=== PATIENT | male | born 1935 | race Caucasian/White ===

== ENCOUNTER 2023-03-28 16:27 | Inpatient (IN) | payer MEDICARE, OTHER, SELFPAY ==
[2023-03-28] VITALS (20 sets, daily range): BP systolic 99–164; BP diastolic 51–88
--- NOTE | 2023-03-28 11:57 | ED.GENMED ---
History of Present Illness
<Dana Aviles PA-C - Last Filed: 03/28/23 17:00>
General
Chief Complaint: Abnormal Lab Value
Source: patient
Exam Limitations: none
Time Seen by Provider: 03/28/23 11:57
Nursing documentation reviewed up to this point in time: agreed with
Travel History
Have you had any contact with someone who has COVID-19?: No
Do you have any symptoms of coronavirus? Fever > 100 degrees, chills, cough, shortness of breath, sore throat, loss of taste or smell, muscle aches, or headache?: No
History of Present Illness
History of Present Illness:
This is a 87 y/o male with a PMH of AML, HTN, HLP, Crohn's, presenting to the ER today with concerns of low platelet count of 3,000. His is present who states that his chemotherapy has been failing recently and that is why they are was
supposed to be getting a bone marrow transplant today when the labs came back and his platelets came back low, so interventional radiology sent him to ED for further evaluation. He currently has no complaints. Patient states that he feels week and
fatigued. He also states that he has had intermittent headaches for the past 2 days but currently denies headaches, nausea, vomiting, abdominal pain, chest pain, fevers or chills, shortness of breath, dizziness, lightheadedness. He states that he
was scheduled to get chemotherapy every 6 weeks but has currently stopped due to treatment failure.
Past History
<Dana Aviles PA-C - Last Filed: 03/28/23 17:00>
Past History
ED Past Medical History: CAD, Cancer (AML), GERD, HTN, Other (Acute myeloid leukemia dx 12/23/21) and Other (PVD, Crohn's disease)
ED Past Surgical History: Appendectomy, Bowel resection, Cardiac (Stents), Orthopedic (Right rotator cuff ) and Other (Fistula repair, Subclavian stent)
Social History
Tobacco: Former smoker
Alcohol: Occasional
Personal:
Living: with family
Review of Systems
<Dana Aviles PA-C - Last Filed: 03/28/23 17:00>
Review of Systems
All Other Systems: ROS reviewed and negative except as documented in HPI and ROS
Phy Exam
<Dana Aviles PA-C - Last Filed: 03/28/23 17:00>
Physical Exam
Physical Exam:
Vitals: vital signs are stable
General: patient appears ill, fatigued
Skin: raised, brady scattered skin lesions resembling seborrheic keratosis; scattered areas of ecchymosis on upper and lower extremities
HEENT: Head-atraumatic, normocephalic. Eyes-no conjunctival erythema, no scleral icterus. Nose-nares patent. Throat-no pharyngeal erythema, no tonsillar hypertrophy. No cervical lymphadenoapthy.
Cardiac: regular rate and rhythm, no murmurs
Pulm: normal respiratory effort, no wheezes, rales, or rhonchi
Abdomen: no abdominal tenderness, no distension, no hepatosplenomegaly
Neuro: AAO x3. CN II-XII. No involuntary movements noted.
Course
<Dana Aviles PA-C - Last Filed: 03/28/23 17:00>
Orders/Labs/Results
Orders:
Orders
03/28/23 12:30
Dexamethasone Sod Phosphate [Decadron] 10 mg IV NOW STA
03/28/23 13:46
Blood Bank Products [* Blood Bank Products] Stat
Blood Bank Products: *Plt Single Donor Leuko
Quantity: one p
Transfuse Today: Yes
Is product needed for scheduled surgery?: No
Reason: Thrombocytopenia
Patient will require pre-treatment for transfusion:: No
03/28/23 14:37
CT Head W/o Iv Contrast Urgent
Comment:
Reason For Exam: headache with thrombocytopenia
03/28/23 Dinner
Regular
At Your Request: Full Participation
Does patient need a safe tray?: No
03/28/23 16:08
Admit/Transfer Patient As Directed
Co-Sign Provider:
Level of Care: Inpatient admission
Assign to:: Medical/Surgical
Physician / Group: Dr Ardon
Diagnosis: Thrombocytopenia
Reason for Hospitalization: Patient 87-year-old male with history of AML presented to the hospital with severe
thrombocytopenia.
Expected length of stay greater than two midnights?: Yes
ELOS- Estimated Length of Stay in days: 2
I certify the patient meets the requirements for IP care: Yes
03/28/23 16:09
Code Status As Directed
Resuscitation Status: Full Code
03/28/23 19:30
Activity As Directed
Activity Level: Out of Bed-Early Mobility
Pneumatic Compression Sleeves As Directed
Type: Knee high
Vital Signs As Directed
Frequency: Per unit guidelines
DX Deep Vein Thrombosis Video Routine
03/29/23 05:41
Basic Metabolic Panel IN AM
Complete Blood Count/With Diff IN AM
Vital Signs
Initial and Last Documented VS:
Initial Vital Signs
BP
99/82
03/28/23 11:44
Last Documented Vital Signs
Temp Pulse Resp BP Pulse Ox
97.5 F 87 18 174/80 99
03/29/23 07:00 03/29/23 07:00 03/29/23 07:00 03/29/23 07:00 03/29/23 07:00
<German Thomas MD - Last Filed: 03/29/23 15:17>
Orders/Labs/Results
Orders:
Orders
03/28/23 12:30
Dexamethasone Sod Phosphate [Decadron] 10 mg IV NOW STA
03/28/23 13:46
Blood Bank Products [* Blood Bank Products] Stat
Blood Bank Products: *Plt Single Donor Leuko
Quantity: one p
Transfuse Today: Yes
Is product needed for scheduled surgery?: No
Reason: Thrombocytopenia
Patient will require pre-treatment for transfusion:: No
03/28/23 14:37
CT Head W/o Iv Contrast Urgent
Comment:
Reason For Exam: headache with thrombocytopenia
03/28/23 Dinner
Regular
At Your Request: Full Participation
Does patient need a safe tray?: No
03/28/23 16:08
Admit/Transfer Patient As Directed
Co-Sign Provider:
Level of Care: Inpatient admission
Assign to:: Medical/Surgical
Physician / Group: Dr Ardon
Diagnosis: Thrombocytopenia
Reason for Hospitalization: Patient 87-year-old male with history of AML presented to the hospital with severe
thrombocytopenia.
Expected length of stay greater than two midnights?: Yes
ELOS- Estimated Length of Stay in days: 2
I certify the patient meets the requirements for IP care: Yes
03/28/23 16:09
Code Status As Directed
Resuscitation Status: Full Code
03/28/23 19:30
Activity As Directed
Activity Level: Out of Bed-Early Mobility
Pneumatic Compression Sleeves As Directed
Type: Knee high
Vital Signs As Directed
Frequency: Per unit guidelines
DX Deep Vein Thrombosis Video Routine
03/29/23 05:41
Basic Metabolic Panel IN AM
Complete Blood Count/With Diff IN AM
Vital Signs
Initial and Last Documented VS:
Initial Vital Signs
BP
99/82
03/28/23 11:44
Last Documented Vital Signs
Temp Pulse Resp BP Pulse Ox
97.5 F 87 18 174/80 99
03/29/23 07:00 03/29/23 07:00 03/29/23 07:00 03/29/23 07:00 03/29/23 07:00
<Dana Aviles PA-C - Last Filed: 03/28/23 17:00>
MDM/Problems Addressed
Differential Diagnosis Includes:
chemotherapy side effects, spontaneous intracranial hemorrhage, blast crisis
MDM/Problems Addressed:
low platelets

will order CT head considering recent headaches
Chronic conditions affecting care: HTN, CAD, Neurological disorder and Cancer (AML, skin cancer)
Acute Exacerbation and/or Progression of Chronic Illness:
AML
Acute Exacerbation and/or Progression of Chronic Illness: Cancer
<Dana Aviles PA-C - Last Filed: 03/28/23 17:00>
*Pulse Oximetry
Patient hypoxic: no
*Critical Care Note
Total Time (30-74mins, 75-104mins- exclusive of procedures): Not Applicable
Data Reviewed
Review of Other/Old Records Reveals: Records (Reviewed office history and physical from 03/06/2023, reviewed ER physician documentation from 01/18/2022, reviewed discharge summary from 01/27/2022)
Source: patient and family
<ANITRA Swenson Last Filed: 03/28/23 17:00>
Patient Management
Discussion with other providers: [facility] [employer] (spoke with heme/onc for treatment recommendations, recommend transfusing and discharging once plt >15, vs transfusing and admitting for observation)
Escalation/DeEscalation of care consider admission/obs:
This is a 87-year-old male with a past medical history of acute myeloid leukemia has been the emergency department today with low platelets. He was going for bone marrow biopsy today to assess response to therapy when they saw that his platelets
were low. Patient currently denies any headaches other than intermittent headaches that occurred 2 days ago. Patient also admits to fatigue and weakness however other ROS negative. Will plan to transfuse, and admit for observation to ensure his
platelets are at goal. CT head reveals no acute intracranial abnormality. will admit for observation
ED Attending Note
<Dana Aviles PA-C - Last Filed: 03/28/23 17:00>
-
Portions of this chart may have been created with voice recognition software.� Occasional wrong word or��sound alike� substitutions may have occurred due to the inherent limitations of voice recognition software.
<German Thomas MD - Last Filed: 03/29/23 15:17>
ED Attending Note
Patient seen and examined by attending physician: Yes
ED Attending Note:
Patient with history of CML and thrombocytopenia, presents to ED for evaluation secondary to worsening platelet count, along with intermittent headache and dizziness. Patient was scheduled to receive bone marrow biopsy, which now has been deferred
secondary to thrombocytopenia. Patient denies fever or chills. Denies blurred vision. Denies nausea or vomiting. Denies loss of sensation or weakness. Patient has recently received RBC as well as platelet transfusion, without any side effects.
Physical Exam
General: no apparent distress, not acutely ill. afebrile. weak appearing
Head: nc/at. eomi
Neck: supple. no meningeal signs.
Heart: s1/s2 regular rate and rhythm, no murmur. equal radial pulses.
Lungs: no acute respiratory distress. clear bilaterally
Abdomen: normal bowel sounds. not tender.
Neuro: alert and oriented. no focal neurological deficits
Skin: no rash
Psychiatric: well kept. interactive and cooperative
Extremities: no edema. no calf tenderness.
Blood work reviewed, significant for anemia and thrombocytopenia.
Discussed with Dr. Willett, hematology, who recommends platelet transfusion and further evaluation.
Transfusion consent on the chart.
CT head pending
Discharge Plan
Departure
Patient Disposition: Admit
Date of Disposition: 03/28/23
Time of Disposition: 15:02
Presentation/result/management discussed w/ accepting MD/DO: Hospitalist
Discharge Problem:
Thrombocytopenia, Anemia
Interventions
Interventions:
*Risk Screen - Suicide Last Done: 03/28/23 20:30
*General Assessment Last Done: 03/28/23 11:54
*Neglect/Abuse Screening Last Done: 03/28/23 11:54
ED- Fall Risk Assessment Last Done: 03/28/23 11:54
*ED COVID-19 Vaccine History Last Done: 03/28/23 20:30
*Nursing Disposition Last Done: 03/28/23 19:15
Discharge Date and Time
Discharge Date/Time: 03/28/23 19:16
--- NOTE | 2023-03-28 16:15 | HPS.HSE ---
Addendum entered and electronically signed by Tristan Ardon MD 03/28/23 18:11:
Correction CODE STATUS is DNR. Confirmed with at bedside.
Original Note:
Family Physician
-
Family Physician: Phylicia Salvador
Chief Complaint
-
Severe low platelets
History of Present Illness
Patient 87-year-old male with history of AML, hypertension, Crohn's, GERD, PVD, CAD, presented to the hospital with severe thrombocytopenia. Patient was in the process of getting a bone marrow biopsy and labs came back with severe thrombocytopenia
so interventional radiology instructed him to come to the ED and procedure aborted. Patient denies any hematuria, epistaxis, bright blood per rectum, melena, hematochezia, hematemesis. He does have some easy bruising. He also had significant
blood extravasation with was getting blood drawn today as per report (by the way is a better historian and knows most details of her illnesses). He denies any fevers or chills. Denies any chest pain or shortness of breath or
lightheadedness. Patient has been getting chemotherapy but recently has been held due to thrombocytopenia per family report. tells me that he has been diagnosed with AML since December 2021 and he has been receiving treatment since then with
follow-up at [facility] and also locally with Dr. Espinoza. also reports that his hemoglobin has been trending down gradually from a baseline of 12 down to 10, 9 and now down to 7.9. also tells me his platelet count has been going down as well
over the last few months and has been in the 20 and 12,000 range but today down to 3000. In the ED, he is hemodynamically stable and he was found to have a platelet count of 3, hemoglobin 7.9, white blood cell count of 3.1. He was referred to
hospitalist service for further evaluation.
Medical History
Past Medical History
Past Medical History: Reports Other (Hypertension, hyperlipidemia, CAD, AML, PVD, Crohn's)
Past Surgical History: Reports Other (Appendectomy, bowel resection, PCI with stents, right rotator cuff repair, distal repair, subclavian stent.)
Social History
Tobacco: Former Smoker
Alcohol: Occasional
Drug: None
Family History
Family History: Other (Mother with breast cancer and father with head and neck cancer.)
Allergies / Home Medications
Allergies reflects when Allergies were last updated in [facility].
Home Medications with original date entered in [facility]
Allergy/Medication List:
Allergies
Allergy/AdvReac Type Severity Reaction Status Date / Time
pollen extracts Allergy HAYFEVER/SNEEZING/ITCHY Verified 03/20/23 12:11
EYES
Home Medications
simvastatin 20 mg tablet 20 mg PO QPM High cholesterol 04/24/09
allopurinol 300 mg tablet 150 mg PO DAILY Gout 11/29/21
cyanocobalamin (vitamin B-12) 1,000 mcg tablet (Vitamin B-12) 500 mcg PO DAILY Supplement 11/29/21
omeprazole 10 mg capsule,delayed release 10 mg PO DAILY Gastrointestinal issue 11/29/21
ascorbic acid (vitamin C) 1,000 mg tablet (Vitamin C) 1,000 mg PO DAILY Supplement 12/17/21
acyclovir 400 mg tablet 400 mg PO BID infection prophylaxis 01/20/22
azacitidine 100 mg solution for injection (Vidaza) 0 mg SC UD Cancer 01/20/22
fexofenadine 180 mg tablet ([facility]i Allergy) 180 mg PO DAILY Allergies 01/20/22
venetoclax 100 mg tablet 400 mg PO UD Cancer 01/20/22
acetaminophen 325 mg tablet (Tylenol) 650 mg PO Q4HPRN PRN mild pain 03/28/23
Review of Systems
-
A 12 point ROS was completed and negative except as noted: Yes
Physical Exam
Vital Signs
Vital Signs
Temp Pulse Resp BP Pulse Ox
98.2 F 78 17 120/64 98
03/28/23 16:14 03/28/23 16:14 03/28/23 16:14 03/28/23 16:14 03/28/23 16:14
Physical exam:
General: Acutely ill
HEENT: Normocephalic, Atraumatic and Moist Mucous Membranes
Respiratory: Clear to Auscultation; Negative Wheezes, Rales or Rhonchi
Cardiac: Regular Rhythm and S1/S2
GI: Soft, Nontender and Nondistended
Musculoskeletal: Some bruises in extremities and a few petechiae. No Clubbing, No Cyanosis and No Edema
Neuro: Awake, Alert and Oriented
Psych: Calm
Physical Exam
General: Other
Impression/Plan
-
IMPRESSION:
Patient 87-year-old male with multiple comorbidities and history of AML presented to the hospital severe thrombocytopenia. Patient at very high risk of morbidity mortality due to severe thrombocytopenia and risk of spontaneous major bleeding and he
will need to be treated in the hospital and monitored accordingly. He is also at risk of toxicity and or complications from treatment itself.
Impression:
Severe thrombocytopenia
Anemia
AML
Conditions prior to presentation:
Hypertension
Hyperlipidemia
CAD
GERD
PLAN:
Will transfuse with platelets today
Will obtain PT and PTT
Hematology consulted ([facility] texted Dr. Kartik Willett today)
Hematology does recommend transfusion of single donor platelet today.
Monitor platelets after transfusion
Will also transfuse packed RBC today, irradiated and leuko completed and CMV negative until clarified by hematology if he is a candidate for transplant or not.
Monitor hemoglobin
Monitor volume status after transfusions
Avoid any antiplatelets or anticoagulants
Hold home regimen until clarification of accurate home list.
SCDs for DVT prophylaxis
CODE STATUS full code
Will give further recommendations based on his clinical course
Prognosis guarded
Total time spent on today's encounter was 75 minutes which included time spent in counseling the patient/family regarding diagnosis and treatment plan as listed above, goals of care, and symptom management. Case was discussed with nursing staff,
specialists, and care coordinators/case management. All labs and imaging personally reviewed by me. Remainder the time spent in detailed review of previous records, lab data, imaging, and other medical provider documentation.
--- NOTE | 2023-03-28 21:30 | PTCARENOTE ---
Pt arrived to 3W form ED and pulled from the stretcher to bed. Pt is AAOx3, oriented to the unit. Bed alarm placed. Plan of care ongoing.
[2023-03-29 00:27] VITALS: BP 142/63
[2023-03-29 06:28] LABS: Hematocrit 26.8 % (39.0-52.0); Hemoglobin 9.3 g/dL (13.0-18.0); Mean Corp Hgb Conc. 34.7 g/dL (33.0-37.0); Mean Corpuscular Hgb 31.1 pg (27.0-31.0); Mean Corpuscular Volume 89.6 fL (80.0-94.0); Mean Platelet Volume 10.6 fL (7.4-10.4); Nucleated Red Blood Cells % 0 % (-); Red Blood Cell Count 2.99 10^6/uL (4.70-6.10); Red Cell Dist. Width 18.6 % (11.5-14.5); White Blood Cell Count 2.5 10^3/uL (4.8-10.8)
[2023-03-29 06:31] LABS: Platelet Count 18 10^3/uL (130-400)
[2023-03-29 07:00] VITALS: BP 174/80
[2023-03-29 07:23] LABS: Absolute Neutrophils -Man Diff 0.6 10^3/uL (1.4-6.5); Atypical Lymphocytes 3 %; Band Neutrophils 0 % (0-3); Eosinophils 1 % (0-6); Lymphocytes 58 % (20-51); Monocytes 14 % (2-9); Segmented Neutrophils 24 % (42-75)
[2023-03-29 07:24] LABS: Anisocytosis Slight; Hypochromasia Slight; Normal RBC Morphology No; Ovalocytes Slight; Platelets Checked Yes; Total Cells Counted 100
[2023-03-29 07:25] LABS: Blood Urea Nitrogen 20 mg/dl (9-20); Calcium 9.1 mg/dl (8.4-10.2); Carbon Dioxide 24 mmol/L (22-30); Chloride 101 mmol/L (98-107); Glucose 116 mg/dl (70-99); Potassium 4.1 mmol/L (3.5-5.1); Sodium 135 mmol/L (135-145); eGFR > 60.00
--- NOTE | 2023-03-29 08:30 | CON.ONC ---
Impression
Impression
AML with progressive pancytopenia
Plan
Plan
Blood counts improved. Okay to proceed with bone marrow biopsy despite platelet count. If this can be done prior to discharge, fine, if not reschedule to be done tomorrow as outpatient.
Coordinate with interventional radiology they can do it. Inpatient bone marrow biopsies have now been denied by administration to be done inpatient unless clinically urgent.
If for some reason bone marrow biopsy cannot be done until next week and IR wants platelet count to be higher than single digits, consider repeat platelet transfusion either the day prior or the day of the bone marrow biopsy if it has to be
scheduled for next week. I am comfortable with the patient being discharged home at this time.
Patient History
History of Present Illness
CC: Sent from IR to ER for severe low platelets
HPI: 87-year-old male with history of AML, presented to the hospital with severe thrombocytopenia. Patient was in interventional radiology about to undergo a bone marrow biopsy but platelet count returned = 3, so biopsy procedure was aborted and
patient was referred to the ER. Somewhat confused as to why he is in the hospital. He has no fever or bleeding. Patient's blood counts have been declining and bone marrow biopsy was being performed to evaluate his underlying disease status.
Following platelet transfusion platelet count has improved = 18,000 this morning. In addition, hemoglobin also improved from 7.9-9.3 with 1 unit of PRBCs.
PMH: AML, hypertension, Crohn's, GERD, PVD, CAD
Patient Medication
Medication Instructions Recorded Confirmed Last Taken Type
simvastatin 20 mg tablet 20 mg PO QPM High cholesterol 04/24/09 03/28/23 03/27/23 History
allopurinol 300 mg tablet 150 mg PO DAILY Gout 11/29/21 03/28/23 03/28/23 History
cyanocobalamin (vitamin B-12) 500 mcg PO DAILY Supplement 11/29/21 03/28/23 03/28/23 History
1,000 mcg tablet (Vitamin B-12)
omeprazole 10 mg capsule,delayed 10 mg PO DAILY Gastrointestinal 11/29/21 03/28/23 03/28/23 History
release issue
ascorbic acid (vitamin C) 1,000 mg 1,000 mg PO DAILY Supplement 12/17/21 03/28/23 03/28/23 History
tablet (Vitamin C)
acyclovir 400 mg tablet 400 mg PO BID infection prophylaxis 01/20/22 03/28/23 03/28/23 History
azacitidine 100 mg solution for 0 mg SC UD Cancer 01/20/22 03/28/23 03/20/23 History
injection (Vidaza)
fexofenadine 180 mg tablet 180 mg PO DAILY Allergies 01/20/22 03/28/23 03/28/23 History
(Christi Allergy)
venetoclax 100 mg tablet 400 mg PO UD Cancer 01/20/22 03/28/23 3 Weeks Ago History
~03/07/23
acetaminophen 325 mg tablet 650 mg PO Q4HPRN PRN mild pain 03/28/23 03/28/23 03/27/23 History
(Tylenol)
Physical Exam
-
General: No Apparent Distress, Comfortable and Conversant
HEENT: Negative Jaundice
Cardiology: S1 and S2
Pulmonary: Clear
GI: Soft
Psych: Calm
Labs
Lab Results
WBC 2.5 10^3/uL (4.8-10.8) L 03/29/23 05:41
RBC 2.99 10^6/uL (4.70-6.10) L 03/29/23 05:41
Hgb 9.3 g/dL (13.0-18.0) L 03/29/23 05:41
Hct 26.8 % (39.0-52.0) L 03/29/23 05:41
MCV 89.6 fL (80.0-94.0) 03/29/23 05:41
MCH 31.1 pg (27.0-31.0) H 03/29/23 05:41
MCHC 34.7 g/dL (33.0-37.0) 03/29/23 05:41
RDW 18.6 % (11.5-14.5) H 03/29/23 05:41
Plt Count 18 10^3/uL (130-400) L* D 03/29/23 05:41
MPV 10.6 fL (7.4-10.4) H 03/29/23 05:41
Creatinine 0.8 mg/dL (0.7-1.3) 03/29/23 05:41
Vital Signs
Vital Signs
Temp Pulse Resp BP Pulse Ox
97.5 F 87 18 174/80 99
03/29/23 07:00 03/29/23 07:00 03/29/23 07:00 03/29/23 07:00 03/29/23 07:00
--- NOTE | 2023-03-29 09:58 | CM ---
Addendum entered by Daysi Healy 03/29/23 13:26:
Plan: Discharge to home today; will provide ride home
Original Note:
Met with patient at bedside; initial assessment completed
Pharmacy verified: [facility]
Patient reported that he lives with his in an apartment; building has elevator access; bath has tub with shower
Reported that family lives nearby if assistance is needed
PLOF: reported he is independent with ambulation, stairs, and ADLs; drives
SNF/Rehab/Home Care utilization history: none
Transportation: will provide ride home
Plan: discharge to home when medically stable; CM will follow for discharge needs
--- NOTE | 2023-03-29 12:53 | W.PN.HOSP.TC ---
Today's Communication/Plan
-
Discharge
Assessment / Plan
Assessment / Plan
Gen-AAOx3, NAD
HEENT-NC, AT, anicteric, clear oral mm
Neck-supple
CV-reg, no M, +S1/S2
Lungs-clear B/L
Abd-soft, NT, ND
Ext-no edema
Musculoskeletal-no cyanosis, clubbing
Skin-warm and dry
Neuro-grossly non-focal
Psych-calm, cooperative
AML with progressive pancytopenia - counts improved with platelet and RBC transfusion. I spoke with oncology, Dr. Butt, he recommends discharge today and return for outpatient bone marrow biopsy this week. I spoke with interventional radiology
and they will call the patient to come back this March 31 for bone marrow biopsy. Discussed with patient and in detail and they agree with plan of care. Follow-up with oncology after discharge. I explained to the patient and
that we can no longer perform inpatient bone marrow biopsies due to cost reasons.
Essential hypertension
Hyperlipidemia -continue simvastatin.
CAD
Crohn's disease
PAD
DNR
Dispo -discharge today as above.
32 minutes spent in discharge process.
Anticipated Discharge: Today
Subjective/Interval History
-
Date of Service: March 29, 2023
Patient seen and examined. at the bedside. No complaints.
Objective Data
-
Labs:
Laboratory Results
03/29/23
05:41
WBC 2.5 L
Hgb 9.3 L
Hct 26.8 L
Plt Count 18 L* D
Sodium 135
Potassium 4.1
Chloride 101
Carbon Dioxide 24
BUN 20
Creatinine 0.8
Glucose 116 H
Calcium 9.1
Vital Signs:
Vital Signs
Temp Pulse Resp BP Pulse Ox
97.5 F 87 18 174/80 99
03/29/23 07:00 03/29/23 07:00 03/29/23 07:00 03/29/23 07:00 03/29/23 07:00
I&O
03/28/23 03/29/23 03/30/23
06:59 06:59 06:59
Intake Total 269 / 269
Output Total 600 / 600
Balance -331 / -331
Review of Systems
-
History Source: Patient
All other systems: Reviewed and negative
--- NOTE | 2023-03-29 12:58 | W.DS.TRANS ---
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
-
Discharge Instructions:
Discharge Diagnosis/Procedures Pancytopenia, AML
Diet Regular
Activity As tolerated
Driving Restrictions As prior to admission
Bathing Restrictions None
Instructions:
Stand-Alone Forms:
Changes to Home Medications: No
Discharge Medications:
DC Medications w/original date entered in [facility]
simvastatin 20 mg tablet 20 mg PO QPM High cholesterol 04/24/09
allopurinol 300 mg tablet 150 mg PO DAILY Gout 11/29/21
cyanocobalamin (vitamin B-12) 1,000 mcg tablet (Vitamin B-12) 500 mcg PO DAILY Supplement 11/29/21
omeprazole 10 mg capsule,delayed release 10 mg PO DAILY Gastrointestinal issue 11/29/21
ascorbic acid (vitamin C) 1,000 mg tablet (Vitamin C) 1,000 mg PO DAILY Supplement 12/17/21
acyclovir 400 mg tablet 400 mg PO BID infection prophylaxis 01/20/22
azacitidine 100 mg solution for injection (Vidaza) 0 mg SC UD Cancer 01/20/22
fexofenadine 180 mg tablet (Christi Allergy) 180 mg PO DAILY Allergies 01/20/22
venetoclax 100 mg tablet 400 mg PO UD Cancer 01/20/22
acetaminophen 325 mg tablet (Tylenol) 650 mg PO Q4HPRN PRN mild pain 03/28/23
Home Medication Changes
Pending Results: No
== END 2023-03-29 14:06 | disposition home or self-care (01) | DRG 809 ==
LOC: 3 WEST ACU 16:27
PROVIDERS: ADMITTING PHYSICIAN Hospitalist; ATTENDING PHYSICIAN Hospitalist; EMERGENCY PHYSICIAN Emergency Medicine; FAMILY PHYSICIAN Internal Medicine; OTHER PHYSICIAN Internal Medicine Hematology & Oncology
PROC: 30233R1 Transfusion of Nonautologous Platelets into Peripheral Vein, Percutaneous Approach (ICD-10-PCS; 2023-03-28)
PROC: 30233N1 Transfusion of Nonautologous Red Blood Cells into Peripheral Vein, Percutaneous Approach (ICD-10-PCS; 2023-03-28)
DX: D61.818 Other pancytopenia (principal); C92.00 Acute myeloblastic leukemia, not having achieved remission; K50.90 Crohn's disease, unspecified, without complications; R79.89 Other specified abnormal findings of blood chemistry; E78.00 Pure hypercholesterolemia, unspecified; I10 Essential (primary) hypertension; R53.83 Other fatigue; R51.9 Headache, unspecified; I25.10 Atherosclerotic heart disease of native coronary artery without angina pectoris; I73.9 Peripheral vascular disease, unspecified; J30.1 Allergic rhinitis due to pollen; K21.9 Gastro-esophageal reflux disease without esophagitis; Z92.21 Personal history of antineoplastic chemotherapy; Z95.5 Presence of coronary angioplasty implant and graft; Z87.891 Personal history of nicotine dependence; Z66 Do not resuscitate; Z53.9 Procedure and treatment not carried out, unspecified reason; Z80.8 Family history of malignant neoplasm of other organs or systems; Z80.3 Family history of malignant neoplasm of breast
CPT/HCPCS: 36415; 70450; 80048; 85025; 85610; 86850; 86900; 86901; 86920; 99285; 99406; P9058; P9073

== ENCOUNTER → 2023-03-31 10:49 | Outpatient (REF) | payer MEDICARE, OTHER, SELFPAY ==
[2023-03-31 11:22] LABS: % Basophils 0.3 % (0-2); % Eosinophils 2.9 % (0-6); % Lymphocytes 59.7 % (20.5-51.1); % Monocytes 11.7 % (1.7-9.3); % Neutrophils 24.4 % (42.2-75.2); Absolute Eosinophils 0.1 10^3/uL (0-0.7); Absolute Lymphocytes 1.9 10^3/uL (1.2-3.4); Absolute Monocytes 0.4 10^3/uL (0.1-0.6); Mean Corp Hgb Conc. 33.3 g/dL (33.0-37.0); Mean Corpuscular Volume 93.1 fL (80.0-94.0); Nucleated Red Blood Cells % 0 % (-); Red Cell Dist. Width 18.8 % (11.5-14.5); White Blood Cell Count 3.2 10^3/uL (4.8-10.8)
[2023-03-31 11:25] LABS: Platelet Count 10 10^3/uL (130-400)
[2023-03-31 11:29] VITALS: BP 131/61; BP_SYST 62
[2023-03-31 12:00] LABS: Absolute Neutrophils 0.8 10^3/uL (1.4-6.5)
[2023-03-31] MEDS: NSS (PRESERVATIVE FREE) 0.25 ML IV (12:05)
[2023-03-31] MEDS: ATIVAN 0.5 MG IV (12:06)
[2023-03-31 12:50] VITALS: BP 138/71; BP_SYST 82
[2023-03-31 12:55] VITALS: BP 122/60; BP 122/61
[2023-03-31 13:05] VITALS: BP 115/60
== END ==
LOC: RADI 10:49
PROVIDERS: ATTENDING PHYSICIAN Nurse Practitioner Adult Health
DX: C92.00 Acute myeloblastic leukemia, not having achieved remission (principal); D69.6 Thrombocytopenia, unspecified; D53.9 Nutritional anemia, unspecified; D68.8 Other specified coagulation defects
CPT/HCPCS: 88305; 88311; 88312; 36415; 38222; 77012; 85025; 85610; 88313; 88341; 88342

== ENCOUNTER 2023-04-13 10:46 | Outpatient (RCR) | payer MEDICARE, OTHER, SELFPAY ==
[2023-03-17] VITALS (7 sets, daily range): BP systolic 104–117; BP diastolic 45–89
[2023-03-17] MEDS: TYLENOL 650 MG PO (09:42)
[2023-03-20 12:00] VITALS: BP 112/53
[2023-03-20 12:21] LABS: % Basophils 0.5 % (0-2); % Eosinophils 4.1 % (0-6); % Immature Granulocytes 1.8 % (0-0.5); % Lymphocytes 46.6 % (20.5-51.1); % Monocytes 9.5 % (1.7-9.3); % Neutrophils 37.5 % (42.2-75.2); Absolute Eosinophils 0.1 10^3/uL (0-0.7); Absolute Monocytes 0.2 10^3/uL (0.1-0.6); Absolute Neutrophils 0.8 10^3/uL (1.4-6.5); Hematocrit 27.2 % (39.0-52.0); Hemoglobin 9.3 g/dL (13.0-18.0); Mean Corp Hgb Conc. 34.2 g/dL (33.0-37.0); Mean Corpuscular Volume 93.5 fL (80.0-94.0); Mean Platelet Volume 11.6 fL (7.4-10.4); Nucleated Red Blood Cells % 0 % (-); Platelet Count 28 10^3/uL (130-400); Red Blood Cell Count 2.91 10^6/uL (4.70-6.10); Red Cell Dist. Width 20.6 % (11.5-14.5); White Blood Cell Count 2.2 10^3/uL (4.8-10.8)
[2023-03-20 12:32] LABS: ALT (SGPT) 22 U/L (0-50); AST (SGOT) 18 U/L (17-59); Albumin 3.2 g/dl (3.5-5.0); Alkaline Phosphatase 102 U/L (38-126); Blood Urea Nitrogen 13 mg/dl (9-20); Calcium 9.1 mg/dl (8.4-10.2); Carbon Dioxide 24 mmol/L (22-30); Chloride 104 mmol/L (98-107); Glucose 152 mg/dl (70-99); Potassium 3.8 mmol/L (3.5-5.1); Sodium 138 mmol/L (135-145); Total Bilirubin 0.5 mg/dl (0.2-1.3); Total Protein 6.5 g/dl (6.3-8.2); eGFR > 60.00
[2023-04-03 11:15] VITALS: BP 146/69
[2023-04-03] MEDS: TYLENOL 650 MG PO (12:11)
[2023-04-03 12:18] VITALS: BP 146/69
[2023-04-03 12:36] VITALS: BP 131/57
[2023-04-03 13:19] VITALS: BP 130/52
[2023-04-12 15:54] LABS: % Eosinophils 3.3 % (0-6); % Lymphocytes 53.7 % (20.5-51.1); % Monocytes 14.7 % (1.7-9.3); % Neutrophils 27.3 % (42.2-75.2); Absolute Eosinophils 0.1 10^3/uL (0-0.7); Absolute Lymphocytes 1.6 10^3/uL (1.2-3.4); Absolute Monocytes 0.4 10^3/uL (0.1-0.6); Mean Corp Hgb Conc. 35.3 g/dL (33.0-37.0); Mean Corpuscular Hgb 31.7 pg (27.0-31.0); Mean Corpuscular Volume 89.8 fL (80.0-94.0); Nucleated Red Blood Cells % 0 % (-); Red Blood Cell Count 2.05 10^6/uL (4.70-6.10); Red Cell Dist. Width 18.6 % (11.5-14.5)
[2023-04-12 15:59] LABS: Hematocrit 18.4 % (39.0-52.0); Hemoglobin 6.5 g/dL (13.0-18.0); Platelet Count 1 10^3/uL (130-400)
[2023-04-12 16:36] LABS: Absolute Neutrophils 0.8 10^3/uL (1.4-6.5)
[2023-04-13 11:18] VITALS: BP 154/72
[2023-04-13 11:39] VITALS: BP 119/53
[2023-04-13 12:29] VITALS: BP 124/48
[2023-04-13 13:15] VITALS: BP 124/48
[2023-04-13 13:30] VITALS: BP 110/43
[2023-04-13 15:15] VITALS: BP 128/57
== END 2023-04-13 23:59 | disposition home or self-care (01) ==
LOC: OID 10:46
PROVIDERS: Nurse Practitioner Family; ATTENDING PHYSICIAN Internal Medicine Hematology & Oncology; FAMILY PHYSICIAN Family Medicine
DX: D53.9 Nutritional anemia, unspecified (principal); K50.90 Crohn's disease, unspecified, without complications
CPT/HCPCS: 36415; 36430; 80053; 85025; 86850; 86900; 86901; 86920; P9016; P9058; P9073

== ENCOUNTER 2023-05-11 11:07 | Outpatient (RCR) | payer MEDICARE, OTHER, SELFPAY ==
[2023-04-24 10:48] LABS: % Basophils 0.3 % (0-2); % Eosinophils 2.8 % (0-6); % Immature Granulocytes 0.7 % (0-0.5); % Lymphocytes 56.1 % (20.5-51.1); % Monocytes 9.8 % (1.7-9.3); % Neutrophils 30.3 % (42.2-75.2); Absolute Eosinophils 0.1 10^3/uL (0-0.7); Absolute Lymphocytes 1.6 10^3/uL (1.2-3.4); Absolute Monocytes 0.3 10^3/uL (0.1-0.6); Absolute Neutrophils 0.9 10^3/uL (1.4-6.5); Hematocrit 21.9 % (39.0-52.0); Hemoglobin 7.8 g/dL (13.0-18.0); Mean Corp Hgb Conc. 35.6 g/dL (33.0-37.0); Mean Corpuscular Hgb 31.1 pg (27.0-31.0); Mean Corpuscular Volume 87.3 fL (80.0-94.0); Nucleated Red Blood Cells % 0 % (-); Platelet Count 3 10^3/uL (130-400); Red Blood Cell Count 2.51 10^6/uL (4.70-6.10); Red Cell Dist. Width 15.1 % (11.5-14.5); White Blood Cell Count 2.9 10^3/uL (4.8-10.8)
[2023-04-25] VITALS (7 sets, daily range): BP systolic 113–131; BP diastolic 47–58
[2023-04-27 10:22] LABS: % Basophils 6.4 % (0-2); % Immature Granulocytes 2.1 % (0-0.5); % Lymphocytes 42.4 % (20.5-51.1); % Monocytes 11.2 % (1.7-9.3); % Neutrophils 34.9 % (42.2-75.2); Absolute Basophils 0.2 10^3/uL (0-0.2); Absolute Eosinophils 0.1 10^3/uL (0-0.7); Absolute Immature Granulocytes 0.1 10^3/uL (0-0.05); Absolute Lymphocytes 1.4 10^3/uL (1.2-3.4); Absolute Monocytes 0.4 10^3/uL (0.1-0.6); Absolute Neutrophils 1.2 10^3/uL (1.4-6.5); Hematocrit 24.3 % (39.0-52.0); Hemoglobin 8.3 g/dL (13.0-18.0); Mean Corp Hgb Conc. 34.2 g/dL (33.0-37.0); Mean Corpuscular Hgb 30.1 pg (27.0-31.0); Mean Platelet Volume 9.7 fL (7.4-10.4); Red Blood Cell Count 2.76 10^6/uL (4.70-6.10); Red Cell Dist. Width 15.2 % (11.5-14.5); White Blood Cell Count 3.3 10^3/uL (4.8-10.8)
[2023-04-27 10:23] LABS: Platelet Count 15 10^3/uL (130-400)
[2023-04-28 11:50] VITALS: BP 126/65
[2023-04-28 12:11] VITALS: BP 126/65
[2023-04-28 12:28] VITALS: BP 123/51
[2023-04-28 14:16] VITALS: BP 117/66
[2023-05-04 11:26] LABS: % Eosinophils 3.9 % (0-6); % Immature Granulocytes 2.5 % (0-0.5); % Lymphocytes 24.3 % (20.5-51.1); % Monocytes 12.6 % (1.7-9.3); % Neutrophils 49.7 % (42.2-75.2); Absolute Basophils 0.3 10^3/uL (0-0.2); Absolute Eosinophils 0.1 10^3/uL (0-0.7); Absolute Immature Granulocytes 0.1 10^3/uL (0-0.05); Absolute Lymphocytes 0.9 10^3/uL (1.2-3.4); Absolute Monocytes 0.5 10^3/uL (0.1-0.6); Absolute Neutrophils 1.8 10^3/uL (1.4-6.5); Hemoglobin 9.3 g/dL (13.0-18.0); Mean Corp Hgb Conc. 34.4 g/dL (33.0-37.0); Mean Corpuscular Hgb 30.4 pg (27.0-31.0); Mean Corpuscular Volume 88.2 fL (80.0-94.0); Mean Platelet Volume 8.1 fL (7.4-10.4); Platelet Count 9 10^3/uL (130-400); Red Blood Cell Count 3.06 10^6/uL (4.70-6.10); Red Cell Dist. Width 14.4 % (11.5-14.5); White Blood Cell Count 3.6 10^3/uL (4.8-10.8)
[2023-05-05 10:20] VITALS: BP 130/36
[2023-05-05 10:54] VITALS: BP 130/36
[2023-05-05 11:12] VITALS: BP 107/47
[2023-05-05 11:51] VITALS: BP 101/37
[2023-05-08 11:39] LABS: % Basophils 0.3 % (0-2); % Eosinophils 3.5 % (0-6); % Immature Granulocytes 1.8 % (0-0.5); % Lymphocytes 34.3 % (20.5-51.1); % Monocytes 16.1 % (1.7-9.3); Absolute Eosinophils 0.1 10^3/uL (0-0.7); Absolute Immature Granulocytes 0.1 10^3/uL (0-0.05); Absolute Lymphocytes 1.2 10^3/uL (1.2-3.4); Absolute Monocytes 0.6 10^3/uL (0.1-0.6); Absolute Neutrophils 1.5 10^3/uL (1.4-6.5); Hematocrit 22.9 % (39.0-52.0); Hemoglobin 7.7 g/dL (13.0-18.0); Mean Corp Hgb Conc. 33.6 g/dL (33.0-37.0); Mean Corpuscular Hgb 29.7 pg (27.0-31.0); Mean Corpuscular Volume 88.4 fL (80.0-94.0); Mean Platelet Volume 11.3 fL (7.4-10.4); Nucleated Red Blood Cells % 0 % (-); Platelet Count 13 10^3/uL (130-400); Red Blood Cell Count 2.59 10^6/uL (4.70-6.10); Red Cell Dist. Width 14.1 % (11.5-14.5); White Blood Cell Count 3.4 10^3/uL (4.8-10.8)
[2023-05-09] VITALS (7 sets, daily range): BP systolic 126–137; BP diastolic 52–72
[2023-05-11 11:23] LABS: % Basophils 4.2 % (0-2); % Eosinophils 3.1 % (0-6); % Immature Granulocytes 1.4 % (0-0.5); % Lymphocytes 37.6 % (20.5-51.1); % Neutrophils 37.7 % (42.2-75.2); Absolute Basophils 0.2 10^3/uL (0-0.2); Absolute Eosinophils 0.1 10^3/uL (0-0.7); Absolute Immature Granulocytes 0.1 10^3/uL (0-0.05); Absolute Lymphocytes 1.3 10^3/uL (1.2-3.4); Absolute Monocytes 0.6 10^3/uL (0.1-0.6); Absolute Neutrophils 1.3 10^3/uL (1.4-6.5); Hematocrit 25.6 % (39.0-52.0); Hemoglobin 8.8 g/dL (13.0-18.0); Mean Corp Hgb Conc. 34.4 g/dL (33.0-37.0); Mean Corpuscular Hgb 30.2 pg (27.0-31.0); Platelet Count 7 10^3/uL (130-400); Red Blood Cell Count 2.91 10^6/uL (4.70-6.10); Red Cell Dist. Width 13.6 % (11.5-14.5); White Blood Cell Count 3.6 10^3/uL (4.8-10.8)
== END 2023-05-14 23:59 | disposition home or self-care (01) ==
LOC: OID 11:07
PROVIDERS: ATTENDING PHYSICIAN Internal Medicine Hematology & Oncology; PRIMARYCARE PHYSICIAN Family Medicine
DX: D53.9 Nutritional anemia, unspecified (principal); K50.90 Crohn's disease, unspecified, without complications
CPT/HCPCS: 36415; 36430; 73552; 85025; 86850; 86900; 86901; 86920; P9016; P9073